=== PATIENT | female | born 1975 | race Caucasian/White ===

== ENCOUNTER 2019-03-15 21:57 | Emergency (ER) | payer OTHER ==
--- NOTE | 2019-03-15 22:24 | ED.PDOC ---
History of Present Illness - General Chief Complaint: Trauma Stated Complaint: head, rib pain Time Seen by Provider: 03/15/19 22:14 Source: patient Exam Limitations: no limitations - History of Present Illness Initial Comments: Anupama Alvarez 43 y/o female stated her horse she was riding fell and she also fell with the horse to the ground and hit her head on the the fence also horse fell on her.Has right sharp right rib cage pain and neck pain as well as scalp tenderness.Denies LOC,remembers incident. Occurred: this evening Severity: moderate Pain Location: neck, chest, other - scalp Method of Injury: other - see hpi Improving Factors: rest Worsening Factors: nothing Loss of Consciousness: no loss of consciousness Associated Symptoms (Fall): other - pain Allergies/Adverse Reactions: Allergies Acetaminophen [From Vicodin] Adverse Reaction (Verified 03/15/19 22:29) Hydrocodone [From Vicodin] Adverse Reaction (Verified 03/15/19 22:29) Home Medications: Ambulatory Orders Tramadol HCl [Conzip] 100 mg PO Q6HRS PRN #30 cap 03/15/19 Review of Systems - Review of Systems Constitutional: States: no symptoms reported EENTM: States: no symptoms reported Respiratory: States: see HPI Gastrointestinal/Abdominal: States: no symptoms reported Genitourinary: States: no symptoms reported Musculoskeletal: States: see HPI Skin: States: no symptoms reported Neurological: States: no symptoms reported Endocrine: States: no symptoms reported All other Systems: Reviewed and Negative, No Change from Baseline Past Medical History (General) - Social History Hx Alcohol Use: No Hx Substance Use: No Hx Physical Abuse: No Hx Emotional Abuse: No - Female History Patient is a Female of Child Bearing Age (10 -59 yrs old): Yes Hx Last Menstrual Period: 03/14/19 Patient : No Family Medical History - Family History Father Family History: No Known Mother Family History: Unknown Physical Exam - Physical Exam General Appearance: Alert, Comfortable, No apparent distress Head Injury: tenderness - right side scalp, other - no open wound Eye Exam: bilateral normal ENT Exam: no evidence of ENT injury, no dental injury Neck Exam: non-tender, full range of motion, normal alignment, normal inspection, paraspinous muscle tender Cardiovascular/Respiratory: regular rate, rhythm, no M/R/G, normal peripheral pulses, normal breath sounds, other - tenderness right rib cage Gastrointestinal/Abdominal: normal bowel sounds, non tender, soft Back Exam: no CVA tenderness, no vertebral tenderness Extremity Exam: non-tender, no pedal edema, other - slight tenderness rid mid tib fib,no ecchymosis;or erythema mild swelling right ankle joint Neurologic: alert, oriented x 3 - Lismore Coma Score Best Eye Response (Lismore): (4) open spontaneously Best Verbal Response (Lismore): (5) oriented Best Motor Response (Lilli): (6) obeys commands Lismore Total: 15 Progress - Progress Progress: 03/15/19 22:37 Vital Signs - 8 hr 03/15/19 22:10 Temperature 97.6 F Pulse Rate [ 95 H left] Respiratory 18 Rate Blood Pressure 135/96 [left] O2 Sat by Pulse 98 Oximetry 03/15/19 23:08 After all x-rays were done and talking about result she mentioned that she was also hurting on her right leg so i told her that we can get another X-ray on her right leg but she declined she wants to just follow up with her primary Md Dr. Finn. - Results/Orders Results/Orders: Discuss x-ray result with patient - EKG/XRAY/CT XRAY: c-spine - no fracture Departure - Departure Clinical Impression: Neck pain Fall from horse Qualifiers: Encounter type: initial encounter Qualified Code(s): V80.010A - Animal-rider injured by fall from or being thrown from horse in noncollision accident, initial encounter Fracture of rib of right side Qualifiers: Encounter type: initial encounter Rib fracture type: multiple ribs Fracture type: closed Qualified Code(s): S22.41XA - Multiple fractures of ribs, right side, initial encounter for closed fracture Scalp contusion Qualifiers: Encounter type: initial encounter Qualified Code(s): S00.03XA - Contusion of scalp, initial encounter Leg pain, posterior Qualifiers: Laterality: right Qualified Code(s): M79.604 - Pain in right leg Time of Disposition: 23:17 Disposition: Discharge to Home or Self Care Condition: Good Departure Forms: ED Discharge - Pt. Copy, Patient Portal Self Enrollment Instructions: Contusion (DC), Rib Fracture (DC), Rib Fractures in Adults Prescriptions: Tramadol HCl [Conzip] 100 mg PO Q6HRS PRN #30 cap PRN Reason: Pain Home Medications: Ambulatory Orders Tramadol HCl [Conzip] 100 mg PO Q6HRS PRN #30 cap 03/15/19 Additional Instructions: Return to emergency room as needed;Follow up with primary Md 17 March 2019 for recheck;Elevate right leg 20 degrees at bedtime until better
[2019-03-15 22:34] VITALS: O2SAT 98
--- NOTE | 2019-03-15 22:47 | RAD ---
EXAM: XR Chest, 1 View CLINICAL HISTORY: The patient is 43 years old and is Female; fell off horse TECHNIQUE: Frontal view of the chest. COMPARISON: No relevant prior studies available. FINDINGS: LUNGS: Subtle opacity is noted within the right lower lobe. No consolidation. PLEURAL SPACE: Unremarkable. No pneumothorax. HEART: Unremarkable. No cardiomegaly. MEDIASTINUM: Unremarkable. BONES/JOINTS: Fracture right seventh and eighth ribs. IMPRESSION: Fractured right seventh and eighth ribs. No pneumothorax. Question of minimal contusion within the right lower lobe. Electronically signed by: Delores Jhaveri MD 03/15/2019 10:45 PM CDT
--- NOTE | 2019-03-15 22:48 | RAD ---
EXAM: XR Right Ribs, 2 Views CLINICAL HISTORY: The patient is 43 years old and is Female; fell off horse TECHNIQUE: Frontal and oblique views of the right ribs. COMPARISON: No relevant prior studies available. FINDINGS: LUNGS: Subtle opacity within the right lower lobe is present. PLEURAL SPACE: Unremarkable. No pneumothorax. BONES/JOINTS: Fractured right lateral seventh and eighth ribs are noted. No other fracture is seen. IMPRESSION: Fracture right lateral seventh and eighth ribs. No pneumothorax. Suggestion of contusion within the right lower lobe. Electronically signed by: Delores Jhaveri MD 03/15/2019 10:46 PM CDT
--- NOTE | 2019-03-15 22:48 | RAD ---
EXAM: XR Cervical Spine, 2 or 3 Views CLINICAL HISTORY: The patient is 43 years old and is Female; fall TECHNIQUE: Frontal and lateral views of the cervical spine. COMPARISON: No relevant prior studies available. FINDINGS: VERTEBRAE: Unremarkable. No definite fracture. Normal alignment. DISC SPACES: No acute findings. No significant narrowing. SOFT TISSUES: Unremarkable. IMPRESSION: Normal cervical spine radiographs. Electronically signed by: Delores Jhaveri MD 03/15/2019 10:46 PM CDT
[2019-03-15] MEDS: TETANUS,DIPHTHERIA,PERTUSSIS 1 EA SYG IM ONE (22:58)
[2019-03-15] MEDS: PROMETHAZINE HCL 25 MG TAB PO ONE (23:23)
[2019-03-15] MEDS: PROMETHAZINE TAB (ER DISP) 25 MG TAB PO ONE (23:23)
[2019-03-15] MEDS: traMADol HCL 50 MG (ER DISP) # 6 TABS PO ONE (23:23)
[2019-03-15 23:28] VITALS: BP 107/61; TEMP 98.2
== END 2019-03-15 22:45 | disposition home or self-care (01) ==
LOC: ER 21:57
DX: S22.41XA Multiple fractures of ribs, right side, initial encounter for closed fracture (principal); M54.2 Cervicalgia; S00.03XA Contusion of scalp, initial encounter; M79.604 Pain in right leg; V80.010A Animal-rider injured by fall from or being thrown from horse in noncollision accident, initial encounter; Y93.52 Activity, horseback riding; Z23 Encounter for immunization; Z88.6 Allergy status to analgesic agent; Z88.5 Allergy status to narcotic agent
CPT/HCPCS: 71045; 71101; 72040; 90471; 90715; Q0169

== ENCOUNTER 2020-06-23 05:46 | Day surgery (SDC) | payer OTHER ==
[2020-06-23] MEDS ORDERED: SODIUM CHLORIDE 0.9% (FLUSH) 10 ML SYG ONE (06:54)
[2020-06-23] MEDS ORDERED: LACTATED RINGERS 1,000 ML ONE (06:54)
[2020-06-23] MEDS ORDERED: PROPOFOL 200 MG/20 ML VIAL IV ONE (07:00)
[2020-06-23 07:48] VITALS: O2SAT 100
[2020-06-23 09:20] VITALS: BP 114/71; TEMP 98.5
--- NOTE | 2020-06-23 09:39 | OP ---
DATE OF PROCEDURE: 06/23/20 PREOPERATIVE DIAGNOSIS: 1. Epigastric pain. 2. Chest pain. POSTOPERATIVE DIAGNOSIS: 1. Epigastric pain. 2. Chest pain. PROCEDURE: 1. Esophagogastroduodenoscopy plus biopsy. SURGEON: Akira Manzo MD. COMPLICATIONS: None apparent. BLOOD LOSS: None. MEDICATIONS: Monitored anesthesia care. DESCRIPTION OF PROCEDURE: Informed consent was obtained prior to sedation. The preprocedure cardiopulmonary assessment was satisfactory. The patient was placed in the left lateral decubitus position and was sedated. The tip of the Olympus esophagogastroduodenoscope was inserted in the oropharynx and carefully advanced through the cricopharyngeus into the esophageal lumen. The esophagus shows normal mucosa except for a small gastric inlet patch in the proximal esophagus. There was no evidence of esophagitis, Magallon's or other abnormality that would account for her pain. The stomach was examined with direct and retroflexed views. The antrum, body, fundus, cardia and incisura were closely examined. The gastric mucosa was unremarkable. I took biopsies of the antrum with cold biopsy forceps looking for H. pylori. The duodenum was examined down to the third portion and it was unremarkable. I took biopsies of the second portion of the duodenum with cold biopsy forceps looking for celiac sprue. The procedure was then terminated. RECOMMENDATIONS: I did not see anything on the upper endoscopy to account for chest pain or epigastric pain. I will be following up with her on these biopsies. #[id number] cc: KAN Carmichael MD [facility]
== END 2020-06-23 09:20 | disposition home or self-care (01) ==
LOC: AMB 05:46
PROVIDERS: ATTEND Internal Medicine Gastroenterology
DX: R07.9 Chest pain, unspecified (principal); R10.13 Epigastric pain; Z88.5 Allergy status to narcotic agent; Z88.0 Allergy status to penicillin; Z86.010 Personal history of colon polyps
CPT/HCPCS: 00731; 43239; A4216; J3490; J7120